=== PATIENT | female | born 1935 | race Caucasian/White ===

== ENCOUNTER → 2024-11-29 | Outpatient (CLI) | payer OTHER, MEDICARE ==
--- NOTE | 2024-11-29 16:05 | HMCIMG ---
EXAM: CT Head Without IV contrast. CLINICAL HISTORY: HEADACHE TECHNIQUE: Axial computed tomography images of the head/brain without intravenous contrast. COMPARISON: None provided. FINDINGS: BRAIN: Age-appropriate atrophy. No evidence of acute hemorrhage. No mass lesion. No CT evidence for acute territorial infarct. No midline shift or extra-axial collections. VENTRICLES: No hydrocephalus. ORBITS: The orbits are unremarkable. SINUSES AND MASTOIDS: The paranasal sinuses and mastoid air cells are clear. BONES: No fracture. SOFT TISSUES: Unremarkable. IMPRESSION: No acute intracranial abnormality. /[place]
== END | disposition home or self-care (01) ==
LOC: RAH 14:38
PROVIDERS: ATTEND Internal Medicine
DX: G31.89 Other specified degenerative diseases of nervous system (principal); R51.9 Headache, unspecified; Z79.01 Long term (current) use of anticoagulants
CPT/HCPCS: 70450